=== PATIENT | male | born 1930 | race Caucasian/White ===

== ENCOUNTER → 2017-02-05 | Outpatient (CLI) | payer MEDICARE, OTHER ==
[~2017-02-05] MED LIST: ALBUTEROL2.5 MG/NEB IN; ASPIRIN EC325 MG PO; AUGMENTIN 875-1 EACH PO; AVPAK AZITHROM250 MG PO; AZITHROMYCIN250 M1 PO; AZITHROMYCIN250 MG PO; BUDESONIDE0.25 MG/2 IH; CEFDINIR300 M1 PO; CENTRUM SILVER1 TAB PO; CYCLOBENZAPRINE10 M3 PO; DELTASONE20 MG PO; DILTIAZEM 180180 MG PO; DULERA1 AR1 IH; DUONEB 3 MG/3 ML3 ML IH; FLEXERIL10 MG PO; INDOCIN25 M1 PO; IPRATROPIUM 2.2.5 ML IH; Isosorbide Mono30 MG PO; KEFLEX 500MG.500 MG PO; LIPITOR20 MG PO; LIPITOR40 M1 PO; LIPITOR40 MG PO; MEDROL 4MG. DOSE4 MG PO; NASONEX0.05 MG/AC; OMNICEF 300 MG300 MG PO; PERFOROMIS20 MCG/2 M IH; PREDNISONE 20MG20 MG PO; PRILOSEC20 M1 PO; REQUIP2 MG PO; SINGULAIR 10 MG10 MG PO; [UNRECOGNIZED DRUG - OTHER]
--- NOTE | 2017-02-05 19:43 | RADIOLOGY REPORT PS360 ---
PROCEDURE: 2-D M-mode and color Doppler study INDICATIONS FOR THE TEST: Chest pain COPDX Heart Murmur Tobacco Smoking Palpitations Fatigue Syncope Edema Hypertension Diabetes Mellitus Rheumatic Fever SOBXDOEXObesity HyperlipidemiaX Family History HD Additional History CAD PATIENT INFORMATION HEIGHT: 65 WEIGHT:149 GENDER: Male B/P:136/68 2-D/M-MODE INTERPRETATION: 2-D MEASUREMENTS OBSERVED VALUES IN CMS Right Ventricular Dimension (RVDd) 3.3 Interventricular Septum (Thickness)(IVsd) 1.7 Left Ventricular Internal Dimensions(LVIDd) 3.8 Left Ventricular Posterior Wall (Thickness)(LVPWd) 1.0 Aortic Root 4.1 Aortic Cusp Separation 2.1 Left Atrial Dimensions (LAD) 4.4 2D 1. Left atrium is mildly enlarged, left ventricle is normal size, there is mild concentric left ventricular hypertrophy, visually estimated ejection fraction of 55% with no obvious regional wall motion abnormality. 2. The right atrium is mildly enlarged, right ventricle is mildly dilated with normal contractility. 3. The aortic valve is thickened and calcified leaflet continue to display mobility. 4. The mitral and tricuspid valve are minimally thickened. 5. The pulmonic valve is not well visualized. 6. No significant pericardial effusion noted. DOPPLER INTERROGATION: Doppler interrogation of the aortic mitral and tricuspid valve reveals presence of mild aortic, mild mitral and tricuspid regurgitation, tricuspid regurgitant jet velocity insufficient for calculation of the right ventricular systolic pressure, grade 1 diastolic dysfunction seen without tissue Doppler evidence of raised left atrial pressure. CONCLUSION: 1. Biatrial enlargement, normal left ventricular size, mild concentric left ventricular hypertrophy, visually estimated ejection fraction of 55% with no obvious regional wall motion abnormality, grade 1 diastolic dysfunction seen without tissue Doppler evidence of raised left atrial pressure. 2. Mildly enlarged right ventricle with normal contractility. 3. Mild aortic, mild mitral and tricuspid regurgitation. 4. No significant pericardial effusion noted.
== END ==
LOC: RT 12:46
DX: I25.10 Atherosclerotic heart disease of native coronary artery without angina pectoris (principal)

== ENCOUNTER → 2017-05-29 | Outpatient (CLI) | payer MEDICARE, OTHER | LOC: LAB 09:01 | DX: C61 Malignant neoplasm of prostate (principal); Z12.5 Encounter for screening for malignant neoplasm of prostate | CPT/HCPCS: G0103 ==